=== PATIENT | female | born 1965 | race Caucasian/White ===

== ENCOUNTER → 2016-06-14 | Outpatient (CLI) | payer OTHER ==
[~2016-06-14] VITALS: Ht 165.1 cm; Wt 61.2 kg
[~2016-06-14] MED LIST: ABILIFY20 MG PO; ADVIL200 MG PO; ATIVAN2 MG PO; CRESTOR5 MG PO; LAMICTAL100 MG PO; MOTRIN600 MG PO; NORCO 7.5/321 TABLET PO; PAXIL10 MG PO; PRILOSEC10 MG PO; ROBAXIN500 MG PO; VITAMIN D400 UNIT PO
== END | disposition home or self-care (01) ==
LOC: AMB 05-24 13:00
PROC: 0DB48ZX Excision of Esophagogastric Junction, Via Natural or Artificial Opening Endoscopic, Diagnostic (ICD-10-PCS; principal; 2016-06-14)
PROC: 0DB68ZX Excision of Stomach, Via Natural or Artificial Opening Endoscopic, Diagnostic (ICD-10-PCS; principal; 2016-06-14)
PROC: 0DBE8ZZ Excision of Large Intestine, Via Natural or Artificial Opening Endoscopic (ICD-10-PCS; principal; 2016-06-14)
DX: R11.2 Nausea with vomiting, unspecified (principal); K29.70 Gastritis, unspecified, without bleeding; K20.9 Esophagitis, unspecified; K62.5 Hemorrhage of anus and rectum; D12.0 Benign neoplasm of cecum; D12.4 Benign neoplasm of descending colon; D12.5 Benign neoplasm of sigmoid colon; R19.7 Diarrhea, unspecified; K64.9 Unspecified hemorrhoids; F17.200 Nicotine dependence, unspecified, uncomplicated; M79.7 Fibromyalgia; K21.9 Gastro-esophageal reflux disease without esophagitis
CPT/HCPCS: 88305; 88342 TC; J2250; J3010